=== PATIENT | male | born 1995 | race Two or more races ===

== ENCOUNTER 2020-02-13 21:07 | Emergency (ER) | payer SELFPAY ==
[~2020-02-13] VITALS: Ht 172.7 cm; Wt 86.0 kg
[2020-02-13] MEDS ORDERED: SODIUM CHLORIDE 0.9% 1,000 ML IV ONE (21:28)
[2020-02-13] MEDS ORDERED: OLANZAPINE 10 MG/VIAL IM ONE (21:30)
[2020-02-13 21:57] LABS: BASOPHILS % 0.7 % (0.0-2.0); EOSINOPHILS % 0.6 % (0.0-5.0); HEMATOCRIT. 36.7 % (42.0-52.0); HEMOGLOBIN. 12.1 g/dL (14.0-18.0); LYMPHOCYTES % 32.1 % (20.0-50.0); MEAN CORPUSCULAR HEMOGLOBIN 26.2 pg (28.0-32.0); MEAN CORPUSCULAR VOLUME 79.4 fL (80.0-94.0); MEAN PLATELET VOLUME 7.7 fl (7.4-10.4); MONOCYTES % 9.6 % (2.0-8.0); PLATELET 323 x1000/uL (130-400); RED BLOOD CELL COUNT 4.63 mill/uL (4.7-6.1); RED CELL DISTRIBUTION WIDTH 16.1 % (11.6-14.6)
[2020-02-13 22:02] LABS: CHLORIDE 106 mEq/L (98-107)
[2020-02-14 07:30] VITALS: BP 113/59
== END 2020-02-14 09:02 | disposition home or self-care (01) ==
LOC: ER 21:07
DX: F15.188 Other stimulant abuse with other stimulant-induced disorder (principal); F11.188 Opioid abuse with other opioid-induced disorder; R00.0 Tachycardia, unspecified; J45.909 Unspecified asthma, uncomplicated; R45.1 Restlessness and agitation; F17.210 Nicotine dependence, cigarettes, uncomplicated; Z71.6 Tobacco abuse counseling
CPT/HCPCS: 36415; 80053; 83605; 84484; 85025; 93005; 96372; 99285; 99406; J3490; J7030

== ENCOUNTER 2020-12-03 00:12 | Emergency (ER) | payer MEDICAID ==
[~2020-12-03] VITALS: Ht 172.7 cm; Wt 88.6 kg
[2020-12-03] MEDS ORDERED: SODIUM CHLORIDE 0.9% 1000ML BAG (SEPSIS BOLUS) IV ONE (01:15)
[2020-12-03 02:00] VITALS: BP 106/53
[2020-12-03] MEDS ORDERED: VANCOMYCIN 1,750 MG in DEXT 5% WATER 500 ML IV SCH ×2 (02:00→12:00)
[2020-12-03 02:43] LABS: CHLORIDE 105 mEq/L (98-107)
[2020-12-03 03:15] LABS: BASOPHILS % 0.5 % (0.0-2.0); EOSINOPHILS % 1.5 % (0.0-5.0); HEMATOCRIT. 33.8 % (42.0-52.0); HEMOGLOBIN. 10.8 g/dL (14.0-18.0); LYMPHOCYTES % 27.2 % (20.0-50.0); MEAN PLATELET VOLUME 7.5 fl (7.4-10.4); MONOCYTES % 7.6 % (2.0-8.0); NEUTROPHILS % 63.2 % (40.0-76.0); PLATELET 350 x1000/uL (130-400); RED BLOOD CELL COUNT 4.33 mill/uL (4.7-6.1); RED CELL DISTRIBUTION WIDTH 16.6 % (11.6-14.6)
[2020-12-03 09:51] LABS: INR 1.1; PROTHROMBIN TIME 11.4 sec (9.6-11.0)
== END 2020-12-03 03:25 | disposition left against medical advice (07) ==
LOC: ER 00:12 → CANBEDREQ 03:27
DX: F15.10 Other stimulant abuse, uncomplicated (principal); R50.9 Fever, unspecified; F41.9 Anxiety disorder, unspecified; F31.9 Bipolar disorder, unspecified; Z98.890 Other specified postprocedural states
CPT/HCPCS: 36415; 71045; 80053; 83605; 84145; 85025; 85610; 87040; 96360; 99285; J3370; J7030; J7060; Z7610